=== PATIENT | male | born 1965 | race Caucasian/White ===

== ENCOUNTER 2020-10-15 10:18 | Outpatient (CLI) | payer BC ==
[2020-10-15] VITALS (8 sets, daily range): BP systolic 117–132; BP diastolic 71–82; PULSE 61–104; TEMP 98.6
[~2020-10-15] VITALS: Ht 190.5 cm; Wt 99.6 kg
[~2020-10-15 10:18] MED LIST: ALBUTEROL SULFAT3 M3 IH; DIFLUCAN200 MG PO; LEVAQUIN 5500 MG/TA1 PO; MUCINEX 60600 MG/TA1 PO; PREDNISONE20 MG PO; XOPENEX HF0.045 MG/A IH; ZYRTEC-D 5 MG-11 TER PO; [UNRECOGNIZED DRUG - OTHER]
--- NOTE | 2020-10-15 14:00 | NUR ---
Pt's has arrived to give him a ride home. DC instructions were reviewed, he expressed understanding. Steady on feet prior to discharge with no complaints. He's tolerated PO fluids with no nausea. Bandaid to lower back remains clean, dry and intact.
[2020-10-19] MEDS ORDERED: TYLENOL 325MG325 MG PO (13:36)
[2020-10-19] MEDS ORDERED: MOTRIN 200200 MG/TAB PO (13:37)
== END 2020-10-15 14:00 | disposition home or self-care (01) ==
LOC: COL.RAD 10:18
DX: R20.2 Paresthesia of skin (principal)

== ENCOUNTER → 2020-12-12 | Outpatient (CLI) | payer BC ==
[~2020-12-12] MED LIST changes: +MOTRIN 200200 MG/TAB PO; +TYLENOL 325MG325 MG PO
== END ==
LOC: MHCPAIN 14:24
DX: M47.892 Other spondylosis, cervical region (principal); M54.12 Radiculopathy, cervical region; M54.2 Cervicalgia; G89.29 Other chronic pain
CPT/HCPCS: G0463

== ENCOUNTER → 2021-06-21 | Outpatient (CLI) | payer BC | LOC: COL.RAD 07:33 | DX: N20.2 Calculus of kidney with calculus of ureter (principal); N28.1 Cyst of kidney, acquired | CPT/HCPCS: Q9967 ==